=== PATIENT | female | born 1990 | race Caucasian/White ===

== ENCOUNTER → 2018-03-13 | Outpatient (CLI) | payer OTHER ==
[~2018-03-13] MED LIST: ASCO500C9 PO; GUAI600T47 PO; HYDR-2758 PO; IBUP-1060 PO; NORE1TAB11 PO; RANI150C PO
[2018-03-13 10:54] LABS: BASO % 0 % (0-3); EOS # 0.3 x10^3/uL (0.0-0.7); EOS % 3 % (0-3); HEMATOCRIT 38.3 % (36.0-47.0); HEMOGLOBIN 13.3 g/dL (12.0-15.5); LYMPH % 11 % (24-48); MEAN CORPUSCULAR HEMOGLOBIN 30 pg (25-35); MEAN CORPUSCULAR HGB CONC 35 g/dL (31-37); MEAN CORPUSCULAR VOLUME 87 fL (79-100); MONO # 0.5 x10^3/uL (0.0-1.1); MONO % 5 % (0-9); NEUT # 7.1 x10^3uL (1.8-7.7); NEUT % 80 % (31-73); PLATELET COUNT 256 x10^3/uL (140-400); RED BLOOD COUNT 4.42 x10^6/uL (3.50-5.40); RED CELL DISTRIBUTION WIDTH 14.2 % (11.5-14.5); WHITE BLOOD COUNT 8.9 x10^3/uL (4.0-11.0)
[2018-03-13 10:55] LABS: ALBUMIN 3.6 g/dL (3.4-5.0); CREATININE 0.9 mg/dL (0.6-1.0); GFR 75.1; POTASSIUM 3.6 mmol/L (3.5-5.1); TOTAL BILIRUBIN 0.3 mg/dL (0.2-1.0)
== END | disposition home or self-care (01) ==
LOC: SURGPAT 09:47
PROVIDERS: ATTEND Surgery
DX: Z01.818 Encounter for other preprocedural examination (principal); K80.20 Calculus of gallbladder without cholecystitis without obstruction
CPT/HCPCS: 36415; 80048; 82040; 82247; 85025

== ENCOUNTER 2018-03-20 06:37 | Day surgery (SDC) | payer OTHER ==
[~2018-03-20] VITALS: Ht 160 cm; Wt 90.7 kg
[~2018-03-20 06:37] MED LIST changes: +DEXAMETHASONE SOD PHOS 20 MG/5 ML VIAL. ONE; +ONDANSETRON PF 4 MG/2 ML VIAL. ONE; +PROPOFOL 20 ML IV ONE; +ROCURONIUM 50 MG/5 ML VIAL. ONE; +fentaNYL PF VIAL 100 MCG/2 ML VIAL ONE
[2018-03-20] MEDS ORDERED: SURGICEL HEMOSTAT 4X8 EACH. ONE (06:48)
[2018-03-20] MEDS ORDERED: GLUCAGON,HUMAN RECOMBINANT 1 MG/ML VIAL. ONE (06:48)
[2018-03-20] MEDS ORDERED: BUPIVAC MPF-EPI 0.5%-1:200000 30 ML VIAL. ONE (06:48)
[2018-03-20] MEDS ORDERED: IOHEXOL 300 MG/ML 100ML VIAL. ONE (06:48)
[2018-03-20] MEDS ORDERED: MORPHINE SULFATE 2 MG/ML VIAL. IV PRN (07:00)
[2018-03-20] MEDS ORDERED: IV RINGERS,LACTATED 1000ML 1,000 ML IV SCH (07:00)
[2018-03-20] MEDS ORDERED: ONDANSETRON PF 4 MG/2 ML VIAL. IV PRN (07:00)
[2018-03-20] MEDS ORDERED: fentaNYL PF VIAL 100 MCG/2 ML VIAL IV PRN ×2 (07:00)
[2018-03-20] MEDS ORDERED: HYDROmorphone 2 MG/ML VIAL IV PRN (07:00)
[2018-03-20] MEDS ORDERED: LIDOCAINE 1% PF 2 ML VIAL. ID PRN (07:00)
[2018-03-20] MEDS ORDERED: PROCHLORPERAZINE 10 MG/2 ML VIAL. IV PRN (07:00)
[2018-03-20] MEDS ORDERED: MIDAZOLAM HCL/PF 2 MG/2 ML VIAL. ONE (07:26)
[2018-03-20 07:57] LABS: U PREG PATIENT NEGATIVE (NEG)
[2018-03-20] MEDS ORDERED: fentaNYL PF VIAL 100 MCG/2 ML VIAL ONE ×2 (08:12→09:24)
[2018-03-20] MEDS ORDERED: ESMOLOL 100 MG/10 ML VIAL. IV ONE (08:20)
[2018-03-20] MEDS ORDERED: MORPHINE SULFATE 10 MG/ML VIAL. ONE (08:35)
[2018-03-20] MEDS ORDERED: NEOSTIGMINE METHYLSULFATE 5 MG/5 ML SYRINGE. ONE (08:41)
[2018-03-20] MEDS ORDERED: GLYCOPYRROLATE 1 MG/5 ML VIAL. ONE (08:42)
[2018-03-20] MEDS ORDERED: KETOROLAC 30 MG/ML INJ FOR OR. INJ ONE (08:42)
[2018-03-20] MEDS ORDERED: SEVOFLURANE 61 TO 120 MINUTES. IH ONE (08:43)
--- NOTE | 2018-03-20 08:44 | RAD ---
Intraoperative cholangiogram, 03/20/2018: HISTORY: Cholecystectomy 5 spot films from surgery are presented for review. Contrast has been injected into the cystic duct remnant. 0.22 minutes of fluoroscopy time was utilized. There is good flow contrast into the duodenum at the ampulla. No filling defect is seen in the common duct to suggest a retained calculus. The visualized intrahepatic ducts are unremarkable. No contrast extravasation is seen. IMPRESSION: No significant abnormality is detected. Electronically signed by: Kumar Fox MD (03/20/2018 8:41 AM) [facility]
[2018-03-20] MEDS ORDERED: PROPOFOL 20 ML IV ONE (08:51)
--- NOTE | 2018-03-20 09:24 | PDOC1 ---
History and Physical Date of Admission Date of Admission DATE: 03/20/18 TIME: 09:15 Identification/Chief Complaint Chief Complaint symptomatic cholelithiasis Source Source: Chart review, Patient History of Present Illness History of Present Illness Liseth is a 27 yo female nine weeks post with back pain and a CT showing cholelithiasis Past Medical History Cardiovascular: No pertinent hx Pulmonary: No pertinent hx Renal/: No pertinent hx Past Surgical History Past Surgical History: Tonsillectomy, Other (D&C) Family History Family History: No Significant Social History Smoke: No ALCOHOL: social Current Medications Current Medications Current Medications Ondansetron HCl (Zofran) 4 mg PRN Q6HRS PRN IV NAUSEA/VOMITING; Start at 07:00; Stop 03/21/18 at 06:59 Fentanyl Citrate (Fentanyl 2ml Vial) 25 mcg PRN Q5MIN PRN IV MILD PAIN; Start 03/20/18 at 07:00; Stop 03/21/18 at 06:59 Fentanyl Citrate (Fentanyl 2ml Vial) 50 mcg PRN Q5MIN PRN IV MODERATE TO SEVERE PAIN; Start 03/20/18 at 07:00; Stop 03/21/18 at 06:59 Morphine Sulfate (Morphine Sulfate) 1 mg PRN Q10MIN PRN IV SEVERE PAIN; Start 03/20/18 at 07:00; Stop 03/21/18 at 06:59 Ringer's Solution 1,000 ml @ 30 mls/hr Q24H IV Last administered on at 07:11; Start 03/20/18 at 07:00; Stop 03/20/18 at 18:59 Lidocaine HCl (Xylocaine-Mpf 1% 2ml Vial) 2 ml PRN 1X PRN ID PRIOR TO IV START ; Start 03/20/18 at 07:00; Stop 03/21/18 at 06:59 Hydromorphone HCl (Dilaudid) 0.5 mg PRN Q10MIN PRN IV SEV PAIN, Second choice; Start 03/20/18 at 07:00; Stop 03/21/18 at 06:59 Prochlorperazine Edisylate (Compazine) 5 mg PACU PRN PRN IV NAUSEA, MRX1; Start 03/20/18 at 07:00; Stop 03/21/18 at 06:59 Levofloxacin/ Dextrose 100 ml @ 100 mls/hr 1X PREOP PRN IV PRIOR TO SURGERY Last administered on 03/20/18at 08:05; Start 03/20/18 at 08:00 Propofol 20 ml @ As Directed STK-MED ONCE IV ; Start 03/20/18 at 06:30; Stop 03/20/18 at 06:31; Status DC Dexamethasone Sodium Phosphate (Decadron) 20 mg STK-MED ONCE .ROUTE ; Start at 06:30; Stop 03/20/18 at 06:31; Status DC Ondansetron HCl (Zofran) 4 mg STK-MED ONCE .ROUTE ; Start 03/20/18 at 06:30; Stop 03/20/18 at 06:31; Status DC Rocuronium [place] (Zemuron) 50 mg STK-MED ONCE .ROUTE ; Start 03/20/18 at 06: 30; Stop 03/20/18 at 06:31; Status DC Fentanyl Citrate (Fentanyl 2ml Vial) 100 mcg STK-MED ONCE .ROUTE ; Start at 06:31; Stop 03/20/18 at 06:32; Status DC Bupivacaine HCl/ Epinephrine Bitart (Sensorcain-Mpf Epi 0.5%-1:[id number]) 30 ml STK -MED ONCE .ROUTE Last administered on 03/20/18at 08:13; Start 03/20/18 at 06: 48; Stop 03/20/18 at 06:49; Status DC Glucagon (Glucagen) 1 mg STK-MED ONCE .ROUTE ; Start 03/20/18 at 06:48; Stop 03/20/18 at 06:49; Status DC Iohexol (Omnipaque 300 Mg/ml) 100 ml STK-MED ONCE .ROUTE Last administered on 03/20/18at 08:27; Start 03/20/18 at 06:48; Stop 03/20/18 at 06:49; Status DC Cellulose (Surgicel Hemostat 4x8) 1 each STK-MED ONCE .ROUTE ; Start 03/20/18 at 06:48; Stop 03/20/18 at 06:49; Status DC Midazolam HCl (Versed) 2 mg STK-MED ONCE .ROUTE ; Start 03/20/18 at 07:26; Stop 03/20/18 at 07:27; Status DC Fentanyl Citrate (Fentanyl 2ml Vial) 100 mcg STK-MED ONCE .ROUTE ; Start at 08:12; Stop 03/20/18 at 08:13; Status DC Esmolol HCl (Brevibloc) 100 mg STK-MED ONCE IV ; Start 03/20/18 at 08:20; Stop 03/20/18 at 08:21; Status DC Morphine Sulfate (Morphine Sulfate) 10 mg STK-MED ONCE .ROUTE ; Start 03/20/18 at 08:35; Stop 03/20/18 at 08:36; Status DC Neostigmine Methylsulfate (Neostigmine Methylsulfate) 5 mg STK-MED ONCE .ROUTE ; Start 03/20/18 at 08:41; Stop 03/20/18 at 08:43; Status DC Glycopyrrolate (Robinul) 1 mg STK-MED ONCE .ROUTE ; Start 03/20/18 at 08:42; Stop 03/20/18 at 08:43; Status DC Ketorolac Tromethamine (Toradol For Or Only) 30 mg STK-MED ONCE INJ ; Start at 08:42; Stop 03/20/18 at 08:43; Status DC Sevoflurane (Ultane) 60 ml STK-MED ONCE IH ; Start 03/20/18 at 08:43; Stop at 08:44; Status DC Propofol 20 ml @ As Directed STK-MED ONCE IV ; Start 03/20/18 at 08:51; Stop 03/20/18 at 08:52; Status DC Active Scripts Active Reported Mucinex (Guaifenesin) 600 Mg Tablet.er 1 Tab PO BID Vitamin C (Ascorbic Acid) 500 Mg Capsule 500 Mg PO DAILY Lo Loestrin Fe 1-10 Tablet (Noreth A-Et Estra/Fe Fumarate) 1 Each Tablet 1 Tab PO DAILY Ibuprofen 800 Mg Tablet 800 Mg PO PRN Q6HRS PRN Hydrocodone-Apap 5-325 (Hydrocodone Bit/Acetaminophen) 1 Each Tablet 1 Tab PO PRN Q6HRS PRN Ranitidine Hcl 150 Mg Capsule 1 Cap PO BID Allergies Allergies: Coded Allergies: Penicillins (Verified Allergy, Severe, Anaphylaxis, 03/20/18) ROS Review of System negative with exception of present complaints Physical Exam General: Alert, Oriented X3, Cooperative, No acute distress HEENT: Atraumatic Lungs: Clear to auscultation Heart: RRR Abdomen: Soft, No tenderness Vitals Vitals Vital Signs Date Time Temp Pulse Resp B/P (MAP) Pulse Ox O2 Delivery O2 Flow Rate FiO2 03/20/18 07:09 97.2 72 16 108/66 97 Room Air 97.2 Labs Labs Laboratory Tests Test 03/20/18 06:44 Urine Test Negative (NEG) Laboratory Tests Test 03/20/18 06:44 Urine Test Negative (NEG) VTE Prophylaxis Ordered VTE Prophylaxis Devices: Yes VTE Pharmacological Prophylaxi: No Assessment/Plan Assessment/Plan symptomatic cholelithiasis explained risks including but not limited to bleeding, infection, injury to bowel, liver or bile ducts with resultant bile leak or bile blockage with need for further interventions, possible diarrhea, need for open procedure she will proceed. FRANCISCO BROWNING MD Mar 20, 2018 09:24
--- NOTE | 2018-03-20 09:26 | PDOC ---
BRIEF OPERATIVE NOTE Date: Mar 20, 2018 Pre-Op Diagnosis symptomatic cholelithiasis Post-Op Diagnosis same Procedure Performed l/s cholecystectomy with cholangiograms Surgeon Nathan Steno Typist Rema CARNEY Anesthesia Type: General Blood Loss 10cc IV Fluid 1000cc Specimens Obtained GB Findings supple GB, normal grams Complications none FRANCISCO BROWNING MD Mar 20, 2018 09:26
[2018-03-20] MEDS ORDERED: oxyCODONE/APAP 5/325 1 TAB TABLET PO ONE (10:00)
[2018-03-20] MEDS ORDERED: SEVOFLURANE 31 TO 60 MINUTES. IH ONE (10:32)
--- NOTE | 2018-03-20 11:00 | DISCH ---
DISCHARGE INSTRUCTIONS Condition on Discharge Condition on Discharge: Stable Activity After Discharge Activity Instructions for Disc: Activity as tolerated, Avoid exertion Lifting Instructions after Dis: No heavy lifting Driving Instructions after Dis: Do not drive (3-4 days) Diet after Discharge Diet after Discharge: Regular Wound Incision Care Wound/Incision Care: Ice to area for comfort Other wound/incision instructi: august shower Tuesday Follow-Up Follow up with: Nathan next week FRANCISCO BROWNING MD Mar 20, 2018 11:00
[2018-03-20 12:15] VITALS: BP 116/71
--- NOTE | 2018-03-20 15:45 | OP ---
DATE OF SURGERY: 03/20/2018 PREOPERATIVE DIAGNOSIS: Symptomatic cholelithiasis. POSTOPERATIVE DIAGNOSIS: Symptomatic cholelithiasis. PROCEDURE: Laparoscopic cholecystectomy with cholangiogram. SURGEON: Ken Browning MD PURCHASING ASSOCIATE: ROMMEL Tom. ANESTHESIA: General endotracheal. ESTIMATED BLOOD LOSS: 10 mL. IV FLUIDS: 1 liter. INDICATIONS: The patient is a 27-year-old 9 weeks female with ultrasound showing stones and complaining of back pain. She is brought for cholecystectomy. OPERATIVE FINDINGS: The liver was smooth and sharp. The gallbladder was supple. Cholangiograms were normal. DESCRIPTION OF PROCEDURE: The patient brought to the operating suite, given a general endotracheal anesthetic and the abdomen prepped and draped in usual sterile fashion. A supraumbilical incision was infiltrated with local anesthetic, incised and a 5 mm Visiport used to gain access into the abdominal cavity, taking care to avoid injury to abdominal contents. Pneumoperitoneum was established. Camera inserted and inspection carried out. Under direct vision, the epigastric and midclavicular ports were placed. The lateral port location was used for an "alligator" grasper. This allowed retraction of the gallbladder superolaterally and the cystic duct and cystic artery were exposed. The duct was clipped on the gallbladder side. Cholangiograms were made. These were normal. In light of this, the catheter was removed. The cystic duct was clipped and divided, taking care to avoid injury or compromise of the common duct. The cystic artery was clipped and divided and gallbladder freed from the bed and placed in an EndoCatch bag. Good hemostasis present in the fossa and there was no evidence of a bile leak. Table returned to level. Gallbladder delivered through the epigastric incision. Epigastric incision closed with interrupted 0 Vicryl suture. Intra-abdominal pressure decreased to 6 cm of water. No bleeding from the epigastric closure or from the midclavicular port site after its removal or from the lateral port location. Abdomen decompressed, camera removed, no bleeding seen. Skin incisions closed with subcuticular 4-0 Monocryl. Steri-Strips and sterile dressings applied. The patient awakened from her anesthetic and taken to the recovery room in satisfactory condition. KEN BROWNING MD DR: TIMO/aura JOB#: [id number] / [id number]
--- NOTE | 2018-03-21 16:08 | PATHOLOGY ---
[facility] Accession Number: [id number] . 01 Material submitted: . GALLBLADDER . 01 Clinical history: . Cholelithiasis . 02 Diagnosis: Gallbladder, laparoscopic cholecystectomy: - Cholelithiasis. - Cholesterolosis, focal. - Chronic cholecystitis. - Reactive changes of gallbladder neck lymph node. (JPM:campaign manager; 03/21/2018) MBR/03/21/2018 . 02 Comment: There is no evidence of malignancy. (JPM:campaign manager; 03/21/2018) . 02 Electronically signed: . Jp Swift MD, Pathologist NPI- [id number] . 01 Gross description: . The specimen is received in formalin, labeled "Ahart, Liseth, gallbladder" and consists of an intact green-amezcua, smooth, and shiny gallbladder measuring 8.5 cm in length and up to 3.6 cm in diameter. Opening reveals a lumen filled with tenacious green bile and multiple smooth yellow-green calculi ranging from 0.1-0.6 cm. The mucosa is green with yellow highlights and a thin wall measuring 0.1 cm. No masses or lesions are identified. A single lymph node candidate is identified adjacent to the neck of the gallbladder measuring 0.9 x 0.7 cm. Registered Physical Therapist sections are submitted in A1 including the lymph node (bisected). (CHARITYY; 03/20/2018) SYU/SYU . 02 Pathologist provided ICD-10: K80.10 . 02 CPT . 472663 Specimen Comment: A courtesy copy of this report has been sent to Specimen Comment: [phone]. Specimen Comment: Report sent to Performed at: [address], [place], [place] [id number] MD Titi Jaffe MD Phone: [phone] Performed at: [address] [id number] MD Jp Swift MD Phone: [phone]
== END 2018-03-20 12:36 | disposition home or self-care (01) ==
LOC: SURG 06:37
PROVIDERS: ATTEND Surgery
DX: K80.10 Calculus of gallbladder with chronic cholecystitis without obstruction (principal); Z88.0 Allergy status to penicillin; Z98.890 Other specified postprocedural states; Z72.89 Other problems related to lifestyle; Z79.899 Other long term (current) drug therapy
CPT/HCPCS: 47563; 74300; 81025; 88304; A7015; J1100; J1885; J1956; J2250; J2270; J2405; J2704; J2710; J3010; J3490; J7030; J7120; Q9967; J1610